=== PATIENT | female | born 1960 | race Caucasian/White ===

== ENCOUNTER → 2018-03-10 16:10 | Outpatient (CLI) | payer OTHER, SELFPAY ==
[2018-03-10 18:10] LABS: TSH w/ Reflex to FT4 3.07 uIU/mL (0.47-4.68)
== END ==
PROVIDERS: PCP Family Medicine; Visit Provider Family Medicine
DX: E03.9 Hypothyroidism, unspecified (principal)
CPT/HCPCS: 84443

== ENCOUNTER → 2018-04-19 09:20 | Outpatient (CLI) | payer OTHER, SELFPAY ==
[2018-04-19 11:36] LABS: Free T3, Triiodothyronine Free 3.37 pg/mL (2.77-5.27); Free T4, Direct Thyroxine 1.79 ng/dL (0.78-2.19)
== END ==
PROVIDERS: PCP Family Medicine; Visit Provider Family Medicine
DX: E03.9 Hypothyroidism, unspecified (principal)
CPT/HCPCS: 36415; 84439; 84443; 84481

== ENCOUNTER → 2018-12-13 16:09 | Outpatient (CLI) | payer OTHER, SELFPAY ==
--- NOTE | 2018-12-13 16:10 | DI.MG.S_ITS ---
BILATERAL DIGITAL SCREENING MAMMOGRAM 3D/2D WITH CAD: 12/13/2018 CLINICAL: Routine screening. Comparison is made to exams dated: 12/05/2014 mammogram, 03/30/2011 mammogram, and 11/27/2009 mammogram - [facility]. There are scattered fibroglandular elements in both breasts. Current study was also evaluated with a Computer Aided Detection (CAD) system. No significant masses, calcifications, or other findings are seen in either breast. There has been no significant interval change. IMPRESSION: NEGATIVE There is no mammographic evidence of malignancy. A 1 year screening mammogram is recommended. This exam was interpreted at Station ID: [id number]. NOTE: For mammograms, a report in lay terms will be sent to the patient. Approximately 15% of breast malignancies will not be visualized mammographically. In the management of a palpable breast mass, a negative mammogram must not discourage biopsy of a clinically suspicious lesion. Electronically Signed By: Saba pollard/bill:12/13/2018 16:54:24 letter sent: Normal Exam ACR BI-RADS Category 1: Negative 3341F
== END ==
PROVIDERS: PCP Family Medicine; Visit Provider Family Medicine
DX: Z12.31 Encounter for screening mammogram for malignant neoplasm of breast (principal)
CPT/HCPCS: 77063; 77067

== ENCOUNTER → 2018-12-29 09:07 | Outpatient (CLI) | payer OTHER, SELFPAY ==
[2018-12-29 10:27] LABS: Free T3, Triiodothyronine Free 3.76 pg/mL (2.77-5.27); Free T4, Direct Thyroxine 1.74 ng/dL (0.78-2.19)
== END ==
PROVIDERS: PCP Family Medicine; Visit Provider Family Medicine
DX: E03.9 Hypothyroidism, unspecified (principal)
CPT/HCPCS: 36415; 84439; 84443; 84481

== ENCOUNTER → 2019-01-18 14:06 | Outpatient (CLI) | payer OTHER, SELFPAY | PROVIDERS: PCP Family Medicine; Visit Provider Family Medicine | DX: B99.9 Unspecified infectious disease (principal) | CPT/HCPCS: 87070; 87075; 87077; 87147; 87186; 87205 ==

== ENCOUNTER 2019-03-23 07:43 | Day surgery (SDC) | payer OTHER, SELFPAY ==
--- NOTE | 2019-03-23 | PATH_ITS ---
[facility] Accession Number: [id number] . 01 Material submitted: . body - POLYP AT 50 . 02 Diagnosis: Colon at 50 cm, Polyp: Tubular adenoma. MRV/03/26/2019 . 02 Electronically signed: . Tho Lundberg MD, PhD, Pathologist NPI- [id number] . 01 Gross description: . POLYP AT 50: Received in formalin is 1 fragment(s) of garibay, soft tissue measuring 0.6 x 0.5 x 0.5 cm which is bisected and submitted entirely in 1 cassette(s) /DMC /DMC . 02 Pathologist provided ICD-10: D12.6 . 02 CPT . 757553 Performed at: 01 [facility] [address] [id number] MD Tanner Torrez MD Phone: [phone] Performed at: 02 [facility] [address] [place], [place] [id number] MD Elidia Yarbrough MD Phone: [phone]
[2019-03-23] MEDS: SODIUM CHLORIDE 0.9% 1,000 ML 200 ML IV (08:08)
[2019-03-23 08:10] VITALS: BP 176/100; PULSE 102; RESP 15; TEMP 36.6; O2SAT 95; BMI 36.3
--- NOTE | 2019-03-23 08:57 | PM.HP.1 ---
History of Present Illness Date Patient Seen: 03/23/19 Time Patient Seen: 08:57 Chief complaint: [id number] Narrative: The patient is a woman here for her 1st colonoscopy. This is a screening exam. Her mother did however have colon cancer. Patient History Medical History History of UTI (Acute) Urinary incontinence (Acute) Chronic back pain (Chronic) Degenerative joint disease (DJD) of lumbar spine (Chronic ~2014) History of urinary incontinence (Chronic ~1999) Hypothyroidism (Chronic ~2008) Chicken pox (Resolved) Measles (Resolved) Mumps (Resolved) Surgical History Anesthesia (Resolved) Status post bilateral salpingo-oophorectomy (BSO) Status post hysterectomy (~1999) Family History Father Age: 83 Pacemaker Heart disease Grandfather Cancer Grandmother Stroke Grandfather Age: 77 Heart disease Grandmother Age: 84 Stroke Sister Age: 58 Hypertension Mother Cancer Social History marital status: household members: spouse education level: college occupational status: employed (teacher) Smoking Status: Never smoker substance use type: does not use Family & Social History Family History Father Age: 83 Pacemaker Heart disease Grandfather Cancer Grandmother Stroke Grandfather Age: 77 Heart disease Grandmother Age: 84 Stroke Sister Age: 58 Hypertension Mother Cancer Social History: household members spouse Tobacco & Substance use: Smoking Status Never smoker Meds Home Medications Medication Instructions Recorded Confirmed Type Vitamin B-12 5,000 mcg SUBLINGUAL DAILY #0 01/07/17 03/23/19 History estradiol 1 mg PO QDAY #90 tab 10/12/18 03/23/19 Rx levothyroxine 150 mcg tablet 150 mcg PO DAILY #30 tab 03/09/19 03/23/19 Rx Allergies Allergy/AdvReac Type Severity Reaction Status Date / Time codeine [CODEINE] Allergy Unknown projectile Verified 03/23/19 07:58 vomit Review of Systems Review of Systems All systems reviewed & are unremarkable except as noted in HPI and below Exam Vital Signs (past 8 hours): - 07/26/19 08:10 Temperature 97.8 F Pulse Rate 102 H Respiratory Rate 15 Blood Pressure 176/100 H Pulse Oximetry 95 Oxygen Delivery Method Room Air Narrative Exam Narrative: Pleasant cooperative patient no apparent distress. Lungs are clear to auscultation. No rales or rhonchi. Heart regular rate and rhythm no murmur gallop. Abdomen is soft nontender without mass. No obvious hernias. Patient is alert and oriented x3. Assessment & Plan Assessment & Plan narrative: The patient for a screening colonoscopy. I have discussed the procedure with them. Risks of bleeding, perforation which would necessitate major operation, failure to find remove all lesions, the potential tattoo were all discussed. All questions were answered. They wished to proceed.
--- NOTE | 2019-03-23 08:59 | PM.PREOP ---
Pre-operative Note Interval Note History & Physical reviewed/Exam performed by Physician: Yes Changes to H&P: No ASA Class (for procedural sedation): I
[2019-03-23] MEDS: ONDANSETRON 4 MG/2 ML INJ IV (09:10)
[2019-03-23] MEDS: SCOPOLAMINE 1 PATCH TOP (09:13)
[2019-03-23] MEDS: fentaNYL 250 MCG/5 ML INJ IV (09:25)
[2019-03-23] MEDS: MIDAZOLAM 5 MG/5 ML VIAL IV (09:27)
--- NOTE | 2019-03-23 09:28 | SUR.OPER ---
GLASSES IN LABELED CONTAINER TO PACU WITH PATIENT
[2019-03-23 09:54] VITALS: BP 138/87; PULSE 84; RESP 15; TEMP 36.1; O2SAT 96
--- NOTE | 2019-03-23 09:54 | PM.OP.ENDO ---
Operative Date/Time/Diagnoses Date of procedure: 03/23/19 Time of procedure: 09:55 Pre-op diagnosis: Screening examination. Family history of colon cancer(mother) Post-op diagnosis: same (One moderate size polyp. Snared and removed. Sigmoid diverticulosis.) Procedure & Clinicians Study performed: Colonoscopy with hot snare polypectomy Same procedure as scheduled: Yes Indications: Screening Surgeon: Von Palacios Procedure Notes SCOAP/Timeout: Performed Procedure in detail: The patient was placed in the left lateral decubitus position and underwent IV sedation directed by the surgeon consisting of fentanyl and Versed. Visibly patient had some swollen external hemorrhoids. Digital exam was unremarkable. The scope was inserted and advanced through the rectum into the sigmoid, descending, transverse, and ascending colon. A polyp was noted in the colon on the way in that I decided to remove on the way out. Pressure was applied and a stiffener inserted in order to reach the cecum. The cecum was reached identified by the ileocecal valve and the appendiceal opening. The scope was gradually brought out. The Polyp seen on the way in was found at [address] out[address] It was snared with a hot snare incompletely removed.. The scope ultimately was retroflexed in the rectum. The appearance was remarkable for scarring. There were no polyps.. The scope was removed and the patient tolerated the procedure well Scope withdrawal time: 9min(excludes snare time) Sedation minutes: 36 Findings: diverticulosis (Sigmoid), polyp and other findings (External hemorrhoids) Recommendations: Colonscopy in 5 years Follow up: as needed Disposition: PACU
[2019-03-23 09:59] VITALS: BP 137/83; PULSE 80; RESP 15; O2SAT 94
[2019-03-23 10:04] VITALS: BP 137/86; PULSE 85; RESP 20; TEMP 36.8; O2SAT 98
[2019-03-23 10:10] VITALS: BP 132/80; PULSE 75; RESP 15; TEMP 36.6; O2SAT 100
== END 2019-03-23 10:19 | disposition home or self-care (01) ==
PROVIDERS: PCP Family Medicine; Visit Provider Specialist
PROC: 0DJD8ZZ Inspection of Lower Intestinal Tract, Via Natural or Artificial Opening Endoscopic (ICD-10-PCS; CPT 45378; principal; 2019-03-23 08:45)
DX: Z12.11 Encounter for screening for malignant neoplasm of colon (principal); Z80.0 Family history of malignant neoplasm of digestive organs; K57.30 Diverticulosis of large intestine without perforation or abscess without bleeding; D12.6 Benign neoplasm of colon, unspecified; K64.4 Residual hemorrhoidal skin tags
CPT/HCPCS: 45385; 99152; 99153; J2250; J2405; J3010

== ENCOUNTER → 2020-01-30 15:17 | Outpatient (CLI) | payer OTHER, SELFPAY ==
[2020-01-30 19:04] LABS: Thyroid Stimulating Hormone 0.56 uIU/mL (0.47-4.68)
== END ==
PROVIDERS: PCP Family Medicine; Referring Provider Family Medicine; Visit Provider Family Medicine
DX: E03.9 Hypothyroidism, unspecified (principal)
CPT/HCPCS: 36415; 84443

== ENCOUNTER → 2021-12-02 08:36 | Outpatient (CLI) | payer OTHER, SELFPAY ==
[2021-12-02 09:54] LABS: Alanine Aminotransferase 23 IU/L (<35); Albumin Globulin Ratio 1.5 (1.0-2.8); Alkaline Phosphatase 58 U/L (38-126); Aspartate Aminotransferase 24 IU/L (14-36); BUN Creatinine Ratio 21.9 (6-22); Bilirubin Total 0.7 mg/dL (0.2-1.3); Blood Urea Nitrogen 16 mg/dL (7-17); Calcium 8.8 mg/dL (8.4-10.2); Carbon Dioxide 26 mmol/L (22-32); Chloride 106 mmol/L (98-107); Cholesterol 236 mg/dL (140-199); Estimated Glomerular Filt Rate > 60.0 mL/min (>60); Globulin 2.7 g/dL (1.7-4.1); Glucose 95 mg/dL (70-100); HDL Cholesterol 67 mg/dL (40-60); HEMOLYSIS < 15 (0-50); LDL Cholesterol Calculated 144 mg/dL (<100); Potassium 4.4 mmol/L (3.4-5.1); Sodium 139 mmol/L (137-145); Total Protein 6.7 g/dL (6.3-8.2); Triglycerides 123 mg/dL (35-150)
--- NOTE | 2021-12-02 11:51 | DI.MG.S_ITS ---
BILATERAL DIGITAL SCREENING MAMMOGRAM 3D/2D WITH CAD: 12/02/2021 CLINICAL: Routine screening. Comparison is made to exams dated: 12/13/2018 mammogram - [facility], 12/05/2014 mammogram, and 03/30/2011 mammogram - [facility]. There are scattered fibroglandular elements in both breasts. Current study was also evaluated with a Computer Aided Detection (CAD) system. No significant masses, calcifications, or other findings are seen in either breast. There has been no significant interval change. IMPRESSION: NEGATIVE There is no mammographic evidence of malignancy. A 1 year screening mammogram is recommended. This exam was interpreted at Station ID: [id number]. NOTE: For mammograms, a report in lay terms will be sent to the patient. Approximately 15% of breast malignancies will not be visualized mammographically. In the management of a palpable breast mass, a negative mammogram must not discourage biopsy of a clinically suspicious lesion. Electronically Signed By: Pablo Alarcon M.D., jr/bill:12/02/2021 12:26:08 letter sent: Normal Exam ACR BI-RADS Category 1: Negative 3341F
[2021-12-02 11:56] LABS: Free T4, Direct Thyroxine 1.88 ng/dL (0.78-2.19)
== END ==
PROVIDERS: PCP Family Medicine; Referring Provider Family Medicine; Visit Provider Family Medicine
DX: E03.9 Hypothyroidism, unspecified (principal); E66.9 Obesity, unspecified; Z13.220 Encounter for screening for lipoid disorders; Z12.31 Encounter for screening mammogram for malignant neoplasm of breast
CPT/HCPCS: 36415; 77063; 77067; 80053; 80061; 84439; 84443

== ENCOUNTER → 2022-09-16 07:05 | Outpatient (CLI) | payer OTHER, SELFPAY ==
[2022-09-16 09:15] LABS: TSH w/ Reflex to FT4 0.23 uIU/mL (0.47-4.68)
== END ==
PROVIDERS: PCP Family Medicine; Referring Provider Family Medicine; Visit Provider Family Medicine
DX: E03.9 Hypothyroidism, unspecified (principal); R53.83 Other fatigue; Z79.899 Other long term (current) drug therapy
CPT/HCPCS: 36415; 84439; 84443

== ENCOUNTER → 2022-11-19 07:31 | Outpatient (CLI) | payer OTHER, SELFPAY ==
[2022-11-19 10:35] LABS: Thyroid Stimulating Hormone 1.63 uIU/mL (0.47-4.68)
[2022-11-19 15:31] LABS: Free T4, Direct Thyroxine 1.32 ng/dL (0.78-2.19)
== END ==
PROVIDERS: PCP Family Medicine; Referring Provider Family Medicine; Visit Provider Family Medicine
DX: E03.9 Hypothyroidism, unspecified (principal)
CPT/HCPCS: 36415; 84439; 84443; 84481

== ENCOUNTER → 2022-11-28 10:13 | Outpatient (CLI) | payer OTHER, SELFPAY | PROVIDERS: PCP Family Medicine; Visit Provider Physician Assistant | DX: R30.0 Dysuria (principal) | CPT/HCPCS: 87086 ==

== ENCOUNTER → 2022-12-13 07:29 | Outpatient (CLI) | payer OTHER, SELFPAY ==
--- NOTE | 2022-12-13 07:37 | DI.RAD.S_ITS ---
PROCEDURE: XR CHEST 2V INDICATIONS: Shortness of breath TECHNIQUE: 2 views of the chest were acquired. COMPARISON: None. FINDINGS: Surgical changes and devices: None. Lungs and pleura: Lungs are clear. No pleural effusions or pneumothorax. Mediastinum: Mediastinal contours are normal. Heart size is normal. Bones and chest wall: No suspicious bony abnormalities. Soft tissues appear unremarkable. IMPRESSION: No evidence acute pulmonary process. Dictated by: Glen Longoria M.D. on 12/13/2022 at 8:07 Approved by: Glen Longoria M.D. on 12/13/2022 at 8:09
[2022-12-13 08:13] LABS: Influenza A - CEPHEID Flu A NEGATIVE (NEGATIVE); Influenza B - CEPHEID Flu B NEGATIVE (NEGATIVE); Respiratory Syncytial Virus Negative (Negative)
[2022-12-13 09:33] LABS: COVID-19 CEPHEID 4-PLEX PCR Negative (Negative)
== END ==
PROVIDERS: PCP Family Medicine; Referring Provider Urology; Visit Provider Physician Assistant
DX: J06.9 Acute upper respiratory infection, unspecified (principal); R06.00 Dyspnea, unspecified
CPT/HCPCS: 0241U; 71046

== ENCOUNTER → 2022-12-22 12:23 | Outpatient (CLI) | payer OTHER, SELFPAY | PROVIDERS: PCP Family Medicine; Visit Provider Student in an Organized Health Care Education/Training Program | DX: N39.0 Urinary tract infection, site not specified (principal) | CPT/HCPCS: 87077; 87086; 87186 ==

== ENCOUNTER → 2023-02-11 07:21 | Outpatient (CLI) | payer OTHER, SELFPAY ==
[2023-02-11 08:56] LABS: Add Manual Diff / Slide Review NO; Basophils Absolute Auto 0 /uL (0-100); Basophils Percent Auto 0.2 % (0-2); Eosinophils Absolute Auto 200 /uL (0-450); Eosinophils Percent Auto 3.3 % (2-4); Hematocrit 41.6 % (36-46); Hemoglobin 14.3 g/dL (12.0-16.0); Lymphocytes Absolute Auto 2500 /uL (1100-4500); Lymphocytes Percent Auto 38.3 % (25-40); Mean Corpuscular HGB Conc 34.3 % (30-36); Mean Corpuscular Hemoglobin 29.3 PG (26-34); Mean Corpuscular Volume 85.5 fL (80-100); Monocytes Absolute Auto 400 /uL (0-900); Monocytes Percent Auto 6.4 % (3-14); Neutrophils Absolute Auto 3400 /uL (1500-7000); Neutrophils Percent Auto 51.8 % (50-75); Platelet Count 299 X10^3/uL (150-400); Red Blood Cell Count 4.87 X10^6/uL (4.0-5.2); Red Cell Distribution Width 13.2 % (11.6-14.8); White Blood Cell Count 6.5 X10^3/uL (4.5-11.0)
[2023-02-11 09:26] LABS: HEMOLYSIS < 15 (0-50); Iron 116 ug/dL (37-170)
[2023-02-11 09:30] LABS: Blood Urea Nitrogen 15 mg/dL (7-17); Calcium 9.2 mg/dL (8.4-10.2); Carbon Dioxide 30 mmol/L (22-32); Chloride 101 mmol/L (98-107); Estimated Glomerular Filt Rate > 60 mL/min (>60); Glucose 92 mg/dL (80-110); HEMOLYSIS < 15 (0-50); Sodium 137 mmol/L (137-145)
[2023-02-11 09:40] LABS: Percent Iron Saturation 31 % (15-50); Total Iron Binding Capacity 377 ug/dL (265-497); Transferrin 291 mg/dL (206-381)
[2023-02-11 10:23] LABS: Vitamin B12 > 1000 pg/mL (239-931)
== END ==
PROVIDERS: PCP Family Medicine; Referring Provider Physician Assistant; Visit Provider Physician Assistant
DX: E03.9 Hypothyroidism, unspecified (principal); R53.83 Other fatigue
CPT/HCPCS: 36415; 80048; 82607; 83540; 83550; 84443; 85025

== ENCOUNTER → 2023-11-30 08:30 | Outpatient (CLI) | payer OTHER, SELFPAY ==
--- NOTE | 2023-11-30 08:31 | DI.RAD.S_ITS ---
PROCEDURE: XR FOOT RT MIN 3V INDICATIONS: dorsal foot pain, tender prox 2-4 metatar TECHNIQUE: 3 views of the foot were acquired. COMPARISON: [facility], , FOOT 3V LEFT, 12/07/2016, 17:11. FINDINGS: Bones: No fractures or dislocations. Mild hallux valgus angulation of the 1st MTP joint with medial bunion formation. Mild 1st MTP joint degeneration. Plantar and posterior calcaneal enthesophytes. No suspicious bony lesions. Soft tissues: No tibiotalar joint effusion. Achilles tendon appears normal. IMPRESSION: No acute bony abnormality. Dictated by: Marlo Pfeiffer M.D. on 11/30/2023 at 8:49 Approved by: Marlo Pfeiffer M.D. on 11/30/2023 at 8:49
== END ==
PROVIDERS: PCP Family Medicine; Referring Provider Student in an Organized Health Care Education/Training Program; Visit Provider Student in an Organized Health Care Education/Training Program
DX: M20.11 Hallux valgus (acquired), right foot (principal); M21.611 Bunion of right foot; M79.671 Pain in right foot
CPT/HCPCS: 73630

== ENCOUNTER → 2023-11-30 09:03 | Outpatient (CLI) | payer OTHER, SELFPAY ==
--- NOTE | 2023-11-30 09:04 | DI.MG.S_ITS ---
BILATERAL DIGITAL SCREENING MAMMOGRAM 3D/2D WITH CAD: 11/30/2023 CLINICAL: Routine screening. Comparison is made to exams dated: 12/02/2021 mammogram, 12/13/2018 mammogram - [facility], and 12/05/2014 mammogram - [facility]. Both breasts are heterogeneously dense, which may obscure small masses (category c / 51-75% glandular tissue). Current study was also evaluated with a Computer Aided Detection (CAD) system. There is an oval asymmetry with a circumscribed margin in the left breast at 1 o'clock middle depth. No other significant masses, calcifications, or other findings are seen in either breast. IMPRESSION: INCOMPLETE: NEEDS ADDITIONAL IMAGING EVALUATION The oval asymmetry in the left breast most likely is a skin lesion and is indeterminate. Additional views with possible ultrasound are recommended. Based on the Tyrer Cuzick model (a risk assessment model) the patient's lifetime risk is 10.1% and her 10 year risk is 4.2%. According to the ACR, ACS, and NCCN guidelines, an annual breast MRI exam along with mammogram is recommended if the patient's lifetime risk is 20% or greater. This exam was interpreted at Station ID: [id number]. NOTE: For mammograms, a report in lay terms will be sent to the patient. Approximately 15% of breast malignancies will not be visualized mammographically. In the management of a palpable breast mass, a negative mammogram must not discourage biopsy of a clinically suspicious lesion. Electronically Signed By: Livia blackman/bill:11/30/2023 14:14:52 letter sent: Additional Imaging Needed ACR BI-RADS Category 0: Incomplete 3340F
== END ==
PROVIDERS: PCP Family Medicine; Referring Provider Family Medicine; Visit Provider Family Medicine
DX: Z12.31 Encounter for screening mammogram for malignant neoplasm of breast (principal); R92.333 Mammographic heterogeneous density, bilateral breasts
CPT/HCPCS: 77063; 77067

== ENCOUNTER → 2023-12-28 13:29 | Outpatient (CLI) | payer OTHER, SELFPAY ==
--- NOTE | 2023-12-28 13:30 | DI.MG.S_ITS ---
UNILATERAL LEFT DIGITAL DIAGNOSTIC MAMMOGRAM 3D/2D WITH ADDITIONAL VIEWS: 12/28/2023 CLINICAL: Additional evaluation requested from prior study. Comparison is made to exams dated: 11/30/2023 mammogram, 12/02/2021 mammogram, and 12/13/2018 mammogram - [facility]. The left breast is heterogeneously dense, which may obscure small masses (category c / 51-75% glandular tissue). There is an oval focal asymmetry with a circumscribed margin in the left breast at 2 o'clock middle depth. This is seen in additional views. No other significant masses or calcifications are seen in the breast. IMPRESSION: INCOMPLETE: NEEDS ADDITIONAL IMAGING EVALUATION The oval focal asymmetry in the left breast most likely is a cyst and is indeterminate. A targeted ultrasound of the left breast is recommended and will be performed immediately following this exam. Based on the Tyrer Cuzick model (a risk assessment model) the patient's lifetime risk is 10.1% and her 10 year risk is 4.2%. According to the ACR, ACS, and NCCN guidelines, an annual breast MRI exam along with mammogram is recommended if the patient's lifetime risk is 20% or greater. This exam was interpreted at Station ID: [id number]. NOTE: For mammograms, a report in lay terms will be sent to the patient. Approximately 15% of breast malignancies will not be visualized mammographically. In the management of a palpable breast mass, a negative mammogram must not discourage biopsy of a clinically suspicious lesion. Electronically Signed By: Saba Chan M.D. lk/:12/28/2023 14:00:09 ACR BI-RADS Category 0: Incomplete 3340F
--- NOTE | 2023-12-28 13:30 | DI.US.S_ITS ---
LIMITED ULTRASOUND OF LEFT BREAST AND AXILLA: 12/28/2023 CLINICAL: Follow up from addtional views. Intermittent pain in left breast. Comparison is made to exams dated: 12/28/2023 mammogram, 11/30/2023 mammogram, 12/02/2021 mammogram, 12/13/2018 mammogram - [facility], and 12/05/2014 mammogram - [facility]. Color flow ultrasound of the left breast axilla was performed on the areas of interest. Hansen scale images of the real-time examination were reviewed. There is a 1 cm oval simple cyst in the left breast at 2 o'clock posterior depth. This correlates with mammography findings. IMPRESSION: BENIGN There is no sonographic evidence of malignancy. The 1 cm oval simple cyst in the left breast is benign. Return to annual mammogram screening schedule is recommended. This exam was interpreted at Station ID: [id number]. Electronically Signed By: Saba pollard/:12/28/2023 14:24:41 letter sent: Normal Exam Ultrasound BI-RADS: 2 Benign
== END ==
PROVIDERS: PCP Family Medicine; Referring Provider Family Medicine; Visit Provider Family Medicine
DX: R92.8 Other abnormal and inconclusive findings on diagnostic imaging of breast (principal); N60.02 Solitary cyst of left breast; R92.332 Mammographic heterogeneous density, left breast
CPT/HCPCS: 76642; 77065; G0279

== ENCOUNTER → 2024-06-13 11:07 | Outpatient (CLI) | payer OTHER, SELFPAY ==
[2024-06-13 11:51] LABS: Add Manual Diff / Slide Review NO; Basophils Absolute Auto 100 /uL (0-100); Basophils Percent Auto 1.2 % (0-2); Eosinophils Absolute Auto 200 /uL (0-450); Eosinophils Percent Auto 3.5 % (2-4); Hematocrit 41.8 % (36-46); Hemoglobin 14.5 g/dL (12.0-16.0); Lymphocytes Absolute Auto 2000 /uL (1100-4500); Lymphocytes Percent Auto 33.6 % (25-40); Mean Corpuscular HGB Conc 34.7 % (30-36); Mean Corpuscular Hemoglobin 29.7 PG (26-34); Mean Corpuscular Volume 85.8 fL (80-100); Monocytes Absolute Auto 300 /uL (0-900); Monocytes Percent Auto 4.9 % (3-14); Neutrophils Absolute Auto 3400 /uL (1500-7000); Neutrophils Percent Auto 56.8 % (50-75); Platelet Count 321 X10^3/uL (150-400); Red Blood Cell Count 4.88 X10^6/uL (4.0-5.2); Red Cell Distribution Width 13.2 % (11.6-14.8); White Blood Cell Count 5.9 X10^3/uL (4.5-11.0)
[2024-06-13 12:26] LABS: Hemoglobin A1C% w Est Avg Glu 5.3 % (4.0-6.0)
[2024-06-13 12:28] LABS: Alanine Aminotransferase 16 IU/L (<35); Albumin Globulin Ratio 1.6 (1.0-2.8); Alkaline Phosphatase 79 U/L (38-126); Aspartate Aminotransferase 19 IU/L (14-36); BUN Creatinine Ratio 13.5 (6-22); Bilirubin Total 0.6 mg/dL (0.2-1.3); Blood Urea Nitrogen 10 mg/dL (7-17); Carbon Dioxide 26 mmol/L (22-32); Chloride 105 mmol/L (98-107); Cholesterol 243 mg/dL (140-199); Estimated Glomerular Filt Rate > 60 mL/min (>60); Globulin 2.5 g/dL (1.7-4.1); Glucose 102 mg/dL (80-110); HDL Cholesterol 56 mg/dL (40-60); HEMOLYSIS < 15 (0-50); LDL Cholesterol Calculated 160 mg/dL (<100); Potassium 4.4 mmol/L (3.4-5.1); Sodium 137 mmol/L (137-145); Total Protein 6.5 g/dL (6.3-8.2); Triglycerides 136 mg/dL (35-150)
[2024-06-13 12:57] LABS: TSH w/ Reflex to FT4 0.72 uIU/mL (0.47-4.68)
== END ==
LOC: LAB 11:08
PROVIDERS: PCP Family Medicine; Referring Provider Family Medicine; Visit Provider Family Medicine
DX: Z00.00 Encounter for general adult medical examination without abnormal findings (principal); E03.9 Hypothyroidism, unspecified; E66.9 Obesity, unspecified; Z13.220 Encounter for screening for lipoid disorders; Z13.1 Encounter for screening for diabetes mellitus
CPT/HCPCS: 36415; 80053; 80061; 83036; 84443; 85025

== ENCOUNTER → 2024-08-30 07:20 | Outpatient (CLI) | payer OTHER, SELFPAY | PROVIDERS: PCP Family Medicine; Referring Provider Nurse Practitioner Family; Visit Provider Nurse Practitioner Family | DX: J02.9 Acute pharyngitis, unspecified (principal) | CPT/HCPCS: 87070 ==

== ENCOUNTER 2024-08-30 18:58 | Emergency (ER) | payer OTHER, SELFPAY ==
[2024-08-30 19:07] VITALS: BP 210/101; PULSE 110; RESP 17; TEMP 38.1; O2SAT 98; BMI 35.2
[2024-08-30] MEDS: ONDANSETRON 4 MG ODT SL (19:54)
[2024-08-30] MEDS: ACETAMINOPHEN 325 MG TABLET 975 MG PO (19:54)
--- NOTE | 2024-08-30 20:07 | ED_ITS ---
HPI - Ear Problem General Chief complaint: Ear Stated complaint: sent by [facility], rt ear px, face and neck swelling Time Seen by Provider: 08/30/24 20:06 Source: patient Mode of arrival: Ambulatory History of Present Illness HPI Narrative: 64-year-old female with ongoing ear pain problems, followed by market research executive who suggested oral antihistamines which are being taken, also taking meloxicam for tendinitis on a regular basis, no trauma or injury, complains of right-sided ear pain worse today, with scant drainage, no instrumentation. No neck pain, headache, photophobia. No weakness to face arm or leg. Currently not taking any antibiotics, no recent antibiotics recent months. Related Data Home Medications Medication Instructions Recorded Confirmed meloxicam 7.5 mg tablet 7.5 mg PO DAILY 08/30/24 08/30/24 Previous Rx's Medication Instructions Recorded estradiol 1 mg tablet See Rx Instructions .Route 06/05/24 .COMPLEX #90 tabs levothyroxine 137 mcg tablet 137 mcg PO DAILY #90 tabs 06/21/24 peg 3350-electrolytes 236 240 ml PO Q10M #4,000 mL 07/24/24 gram-22.74 gram-6.74 gram-5.86 gram solution (Golytely) amoxicillin 875 mg tablet 875 mg PO BID dental infection 10 08/30/24 days #20 tabs Allergies Allergy/AdvReac Type Severity Reaction Status Date / Time codeine [CODEINE] Allergy Unknown projectile Verified 08/30/24 19:14 vomit Patient History Medical History Chicken pox Chronic back pain Degenerative joint disease (DJD) of lumbar spine (~2014) History of urinary incontinence (~1999) History of UTI Hypothyroidism (~2008) Measles Mumps Urinary incontinence Surgical History Anesthesia Status post bilateral salpingo-oophorectomy (BSO) Status post hysterectomy (~1999) Family History Father Age: 88 Pacemaker Heart disease Grandfather Cancer Grandmother Stroke Grandfather Age: 82 Heart disease Grandmother Age: 89 Stroke Sister Age: 63 Hypertension Mother Cancer Social History marital status: household members: spouse education level: college occupational status: employed (teacher) Smoking Status: Never smoker substance use type: does not use Smoking Status: Never smoker Exam Narrative Exam Narrative: GENERAL: Well-developed patient, in mild distress. HEAD: Atraumatic. Normocephalic. EYES: Pupils equal round and reactive. Extraocular motions intact. No scleral icterus. No injection or drainage. ENT: Nose without bleeding, purulent drainage. Throat without erythema, tonsillar hypertrophy or exudate. Airway patent. Left TM with clear fluid behind, normal landmarks, normal left EAC. Right TM with bulge inferiorly, dullness inferiorly, no obvious fluid in the external auditory canal, no foreign bodies obvious. No mastoid area tenderness. No specific tenderness TMJ right or left side. Able to open jaw well. Control secretions well, normal phonation NECK: Trachea midline. Non tender CARDIOVASCULAR: Regular rate and rhythm without murmurs, gallops, or rubs. RESPIRATORY: Clear to auscultation. Breath sounds equal bilaterally. No wheezes, rales, or rhonchi. GASTROINTESTINAL: Abdomen soft, non-tender, nondistended. EXTREMITIES: No edema or joint tenderness. BACK: Nontender without deformity or crepitance. No flank tenderness. NEURO: AOx3. Motor functions grossly nonfocal SKIN: No rash or erythema of visible areas Initial Vital Signs Initial Vital Signs: Vital Signs Temperature 100.5 F H 08/30/24 19:07 Pulse Rate 110 H 08/30/24 19:07 Respiratory Rate 17 08/30/24 19:07 Blood Pressure 210/101 H 08/30/24 19:07 Pulse Oximetry 98 08/30/24 19:07 Oxygen Delivery Method Room Air 08/30/24 19:07 Course Orders Ordered: Discontinued Medications Acetaminophen (Acetaminophen 325 Mg Tablet) 975 mg PO NOW ONE Stop: 08/30/24 19:50 Last Admin: 08/30/24 19:54 Dose: 975 mg Documented By: LILIAN Amoxicillin (Amoxicillin 250 Mg Capsule) 1,000 mg PO NOW ONE Stop: 08/30/24 20:24 Last Admin: 08/30/24 20:28 Dose: 1,000 mg Documented By: LILIAN Ondansetron HCl (Ondansetron 4 Mg Odt) 4 mg SL NOW ONE Stop: 08/30/24 19:50 Last Admin: 08/30/24 19:54 Dose: 4 mg Documented By: LILIAN Oxycodone HCl (Oxycodone Ir 5 Mg Tablet) 5 mg PO NOW ONE Stop: 08/30/24 20:23 Last Admin: 08/30/24 20:27 Dose: 5 mg Documented By: LILIAN Oxycodone/Acetaminophen (Oxycodone/Apap 5/325 Prepack) 1 bottle MISC DIRECTED ONE Stop: 08/30/24 20:24 Last Admin: 08/30/24 20:27 Dose: 1 bottle Documented By: LILIAN Vital Signs Vital signs: Vital Signs - 8 hr 08/30/24 20:43 Temperature 99.4 F Pulse Rate 101 H Respiratory Rate 18 Blood Pressure 196/82 H Pulse Oximetry 94 Medical Decision Making MDM Narrative Medical decision making narrative: Ongoing ear problems, now right-sided ear pain today without known trauma, low- grade fever noted on triage. Left TM unremarkable. Right TM with inferior bulge and loss of landmarks, EAC without obvious foreign body or purulent material or narrowing. We will treat for acute suppurative right-sided otitis media for now. No recent antibiotics. Oral dose of amoxicillin, first dose given now, prescription sent to her pharmacy.. Patient given Tylenol after triage. Quite uncomfortable appearing. We will give oral dose oxycodone, home pack oxycodone/APAP. Discharged home with family. Recheck advised with Otolaryngology if not improving by Tuesday. Return precautions discussed. Home with . Discharge Plan Departure Patient Disposition: Home Clinical Impression: Acute right otitis media Activity Restrictions/Additional Instructions: Right-sided ear pain with reported drainage. On examination the inferior aspect of the eardrum has some dullness and loss of landmarks, no obvious foreign bodies seen in the external auditory canal, no obvious purulent fluid or narrowing at this time. Ongoing ear problems, no recent antibiotics, unresponsive to chronic medication meloxicam anti-inflammatory medication being taken for tendinitis, unresponsive to oral antihistamine being taken in case that is cause of ongoing ear problems. Trial of antibiotics, 1st dose amoxicillin given in the emergency department, further dosing for 10 day course sent to your pharmacy. Consider recheck with Otolaryngology if not improving Tuesday. Return to this/nearest emergency department for any change worsening symptoms or any concerns prior. Continue taking your antihistamine and your anti-inflammatory medications. Home pack oxycodone/APAP to use for additional pain control if needed. Clinic contact information provided for local solar energy specialist in the [place] region, if needed. You might require referral from your primary care provider. Prescriptions: New amoxicillin 875 mg tablet 875 mg PO BID 10 Days Qty: 20 0RF No Action meloxicam 7.5 mg tablet 7.5 mg PO DAILY estradiol 1 mg tablet See Rx Instructions .ROUTE .COMPLEX Qty: 90 3RF Dose Instruction: take 1 tablet by mouth once daily Rx Instructions: take 1 tablet by mouth once daily levothyroxine 137 mcg tablet 137 mcg PO DAILY Qty: 90 3RF peg 3350-electrolytes [Golytely] 236-22.74-6.74 -5.86 gram recon soln 240 ml PO Q10M Qty: 4000 0RF Rx Instructions: take as directed by Physician Referrals: Mikal Simpson MD [Physician] - Priyanka Hill DO [Primary Care Provider] - Stand Alone Forms: Patient Portal/API/Survey
[2024-08-30] MEDS: OXYCODONE/APAP 5/325 PREPACK 1 BOTTLE MISC (20:27)
[2024-08-30] MEDS: OXYCODONE IR 5 MG TABLET PO (20:27)
[2024-08-30] MEDS: AMOXICILLIN 250 MG CAPSULE 1000 MG PO (20:28)
[2024-08-30 20:43] VITALS: BP 196/82; PULSE 101; RESP 18; TEMP 37.4; O2SAT 94
== END 2024-08-30 20:43 | disposition home or self-care (01) ==
PROVIDERS: Emergency Provider Emergency Medicine; PCP Family Medicine
DX: H66.91 Otitis media, unspecified, right ear (principal)
CPT/HCPCS: 87070; 99283

== ENCOUNTER → 2024-11-04 09:47 | Outpatient (CLI) | payer OTHER, SELFPAY | PROVIDERS: PCP Family Medicine; Visit Provider Nurse Practitioner Family | DX: R30.0 Dysuria (principal) | CPT/HCPCS: 87077; 87086; 87186 ==

== ENCOUNTER → 2024-11-23 07:16 | Outpatient (CLI) | payer OTHER, SELFPAY | PROVIDERS: PCP Family Medicine; Visit Provider Physician Assistant | DX: R39.9 Unspecified symptoms and signs involving the genitourinary system (principal) | CPT/HCPCS: 87077; 87086; 87186 ==

== ENCOUNTER 2024-12-07 08:06 | Day surgery (SDC) | payer OTHER, SELFPAY ==
[2024-12-07 08:31] VITALS: BP 153/84; PULSE 72; RESP 16; TEMP 36.1; O2SAT 98
[2024-12-07] MEDS: LACTATED RINGERS 1,000 ML 42 ML IV (08:37)
--- NOTE | 2024-12-07 09:20 | P.HP_ITS ---
History of Present Illness History of Present Illness Date Patient Seen: 12/07/24 Time Patient Seen: 09:20 Chief complaint: Colonoscopy Narrative: 64-year-old white female presents for colonoscopy for cancer screening. No changes in bowel habits. [facility] Medical History History of UTI Urinary incontinence Mumps Measles Chicken pox History of urinary incontinence (~1999) Hypothyroidism (~2008) Degenerative joint disease (DJD) of lumbar spine (~2014) Chronic back pain Surgical History Anesthesia Status post bilateral salpingo-oophorectomy (BSO) Status post hysterectomy (~1999) Family History Father Age: 89 Pacemaker Heart disease Grandfather Cancer Grandmother Stroke Grandfather Age: 83 Heart disease Grandmother Age: 90 Stroke Sister Age: 64 Hypertension Mother Cancer Social History marital status: household members: spouse education level: college occupational status: employed (teacher) Smoking Status: Never smoker alcohol intake: current substance use type: does not use Meds Home Medications and Allergies Home Medications Medication Instructions Recorded Confirmed Type levothyroxine 137 mcg tablet 137 mcg PO DAILY #90 tabs 06/21/24 12/07/24 Rx estradiol 1 mg tablet 1 mg PO DAILY 09/27/24 12/07/24 History Allergies Allergy/AdvReac Type Severity Reaction Status Date / Time codeine [CODEINE] Allergy Unknown projectile Verified 12/07/24 08:24 vomit Review of Systems Review of Systems ROS: Yes All systems reviewed with the patient and are negative except as otherwise documented Exam Vital Signs (past 8 hours): - 12/07/24 08:31 Temperature 96.9 F L Pulse Rate 72 Respiratory Rate 16 Blood Pressure 153/84 H Pulse Oximetry 98 Oxygen Delivery Method Room Air Oxygen Delivery Method Room Air Narrative Exam Narrative: Gen: NAD, sitting comfortably in bed, appears well HEENT: Sclera are anicteric, head is normocephalic and atraumatic, trachea is m idline. CV: RRR, no JVD Resp: clear to auscultation bilaterally, equal chest wall movement bilaterally Abd: soft, nontender, normoactive bowel sounds Ext: no edema, full range of motion Neuro: Cranial nerves II-XII grossly intact, no focal deficits Skin: No erythema or ecchymosis Assessment & Plan Assessment and plan (1) Colon cancer screening: Status: Acute Assessment & Plan narrative: Patient presents for colonoscopy Risks, benefits, alternatives to colonoscopy explained, including but not limited to bowel perforation or other serious complication requiring surgery at less than 1 in 5000 colonoscopies, abdominal pain, cramping or bleeding and less than 1% of colonoscopies, and the chances that we find a diagnosis that would require further intervention of about 2%. Patient agrees to proceed. Time-Based Coding :: [TOTAL MINUTES] spent with patient and on the chart (including review of chart, obtaining history, exam, reviewing outside data, placing orders, documenting exam and treatment plan, and counseling patient) on [DATE]. PROFEE Identity Management Consultant Document charge(s): No
--- NOTE | 2024-12-07 09:45 | P.OP.COLON_ITS ---
Operative Date/Time/Diagnoses Date of procedure: 12/07/24 Time of procedure: 09:45 Pre-op diagnosis: Colon screening Post-op diagnosis: same Procedure & Clinicians Study performed: Colonoscopy Same procedure as scheduled: Yes Indications: Colon screening Surgeon: Aaron Travis Procedure Notes SCOAP/Timeout: Performed Procedure in detail: Time-out was performed. Mac was induced. Patient was placed in left lateral d ecubitus position. The perineum was inspected without any gross abnormality. Lubricated pediatric colonoscope was inserted and advanced to the cecum. The terminal ileum was intubated. The colonoscope was withdrawn slowly inspecting the circumference of the colon. Very small polyps may have been missed, prep quality was adequate. Retroflexed view of the rectum showed small, non prolapsed nonbleeding internal hemorrhoids. The scope was withdrawn the patient was taken to PACU in good condition. Scope withdrawal time: 6 Specimen(s): none sent Complications: none Impression: normal colon Post-procedure Recommendations: Colonoscopy in 10 years Follow up: as needed Disposition: PACU
[2024-12-07 09:46] VITALS: BP 102/66; PULSE 63; RESP 9; TEMP 36.6; O2SAT 96
[2024-12-07 09:51] VITALS: BP 101/54; PULSE 60; RESP 16; O2SAT 95
[2024-12-07 09:56] VITALS: BP 112/57; PULSE 68; RESP 14; O2SAT 98
[2024-12-07 09:59] VITALS: BP 124/71; PULSE 61; RESP 14; O2SAT 98
== END 2024-12-07 10:10 | disposition home or self-care (01) ==
PROVIDERS: PCP Family Medicine; Referring Provider Surgery; Visit Provider Surgery
PROC: 0DJD8ZZ Inspection of Lower Intestinal Tract, Via Natural or Artificial Opening Endoscopic (ICD-10-PCS; CPT 45378; principal; 2024-12-07 09:15)
DX: Z12.11 Encounter for screening for malignant neoplasm of colon (principal); K64.8 Other hemorrhoids
CPT/HCPCS: 45378; J2704

== ENCOUNTER → 2025-03-05 16:33 | Outpatient (CLI) | payer OTHER, SELFPAY ==
--- NOTE | 2025-03-05 16:34 | DI.MG.S_ITS ---
MM screening mammo BI: 03/05/2025. BI-RADS: 1 CLINICAL: 64-year old female for bilateral screening mammogram. Tyrer-Cuzick lifetime risk of 7.2%. No personal or first-degree family history of breast cancer. PRIOR EXAMS 12/28/2023, 11/30/2023, 12/02/2021, MAMMOGRAPHY TECHNIQUE: 2D and 3D (tomosynthesis) digital mammographic views obtained, with additional images as needed for full coverage. Current study was also evaluated with a Computer Aided Detection (CAD) system. DENSITY C. The breasts are heterogeneously dense, which may obscure small masses. MAMMOGRAPHY FINDINGS Bilateral: No suspicious mass, asymmetry, microcalcification, or other abnormality seen. No significant change from comparison. IMPRESSION: * No evidence of malignancy. RECOMMENDATIONS Bilateral * Annual screening mammography. OVERALL ASSESSMENT CATEGORY BI-RADS-1: Negative. [employer] recommends annual screening mammography beginning at age 40 for women with average risk of breast cancer. ELECTRONICALLY SIGNED: Livia Luna M.D. on 03/07/2025 at 08:39:32 AM PT Interpreting Station ID: [id number]
== END ==
LOC: MAMMO 16:33
PROVIDERS: PCP Family Medicine; Referring Provider Family Medicine; Visit Provider Family Medicine
DX: Z12.31 Encounter for screening mammogram for malignant neoplasm of breast (principal); R92.333 Mammographic heterogeneous density, bilateral breasts
CPT/HCPCS: 77063; 77067

== ENCOUNTER → 2025-03-22 07:44 | Outpatient (CLI) | payer OTHER, SELFPAY | PROVIDERS: PCP Family Medicine; Visit Provider Registered Nurse | DX: R30.0 Dysuria (principal) | CPT/HCPCS: 87077; 87086; 87186 ==

== ENCOUNTER → 2025-04-02 15:26 | Outpatient (CLI) | payer OTHER, SELFPAY ==
[2025-04-02 15:54] LABS: Appearance Urine UA CLEAR; Bilirubin Urine UA NEGATIVE (NEGATIVE); Color Urine UA YELLOW; Glucose Urine UA NEGATIVE (Negative); Ketones Urine UA 1+ (NEGATIVE); Leukocyte Esterase Urine UA NEGATIVE (NEGATIVE); Nitrite Urine UA NEGATIVE (Negative); Occult Blood Urine UA NEGATIVE (Negative); Protein Urine UA NEGATIVE (Negative); Specific Gravity Urine UA 1.010 (1.000-1.035); Urobilinogen Urine UA 0.2 E.U./dL (0.2)
[2025-04-02 15:58] LABS: pH Urine UA 5.5 (4.5-8.0)
[2025-04-02 16:03] LABS: Culture Indicated Urine Cult Not Indicated
== END ==
PROVIDERS: PCP Family Medicine; Referring Provider Family Medicine; Visit Provider Family Medicine
DX: R35.0 Frequency of micturition (principal); R39.15 Urgency of urination
CPT/HCPCS: 81001

== ENCOUNTER → 2025-04-03 07:19 | Outpatient (CLI) | payer OTHER, SELFPAY ==
[2025-04-03 08:13] LABS: Cholesterol 255 mg/dL (140-199); HDL Cholesterol 53 mg/dL (40-60); Triglycerides 154 mg/dL (35-150)
== END ==
PROVIDERS: PCP Family Medicine; Referring Provider Family Medicine; Visit Provider Family Medicine
DX: Z01.818 Encounter for other preprocedural examination (principal); E03.9 Hypothyroidism, unspecified; E66.9 Obesity, unspecified; E78.00 Pure hypercholesterolemia, unspecified
CPT/HCPCS: 36415; 80061

== ENCOUNTER → 2025-05-09 19:10 | Outpatient (CLI) | payer OTHER, SELFPAY ==
--- NOTE | 2025-05-09 19:12 | DI.MRI.S_ITS ---
PROCEDURE: MR HIP RT WO CON INDICATIONS: right hip pain TECHNIQUE: Noncontrast coronal T1 spin echo and STIR through the bony pelvis. Coronal and axial T2 fast spin echo with fat saturation, sagittal T1 spin echo, and oblique axial T2 fast spin echo with fat saturation through the hip. COMPARISON: None. FINDINGS: Image quality: Excellent. Bones and joints: [id number] bilateral hip joint osteoarthritic changes are seen with joint space narrowing, subchondral sclerosis and small marginal osteophyte formation. There is no marrow edema. No fracture or dislocation. No avascular necrosis of the femoral heads. The visualized lower lumbar spine appears normally aligned. Tendons and ligaments: There is low-grade partial-thickness tear involving distal right gluteus medius tendon at its insertion on greater trochanter extending to musculotendinous junction. Distal right gluteus minimus tendinosis is seen. No fluid distension of the trochanteric bursa.The nearby proximal iliotibial band also appears intact. The iliopsoas tendon appears intact, without adjacent bursal fluid collections or evidence for impingement syndrome. Mild tendinosis involving origins of right hamstring tendons at ischial tuberosity is also seen. Labrum and cartilage: Linear T2 hyperintense signal involving superior anterior right acetabular labrum is seen consistent with superior anterior labral tear. Thinning of articulating cartilage over right femoral head is also noted. Soft tissues: Visualized muscles demonstrate normal bulk and internal signal. Quadratus femoris muscle demonstrates no internal edema to suggest ischiofemoral impingement. The proximal sciatic neurovascular bundle appears normal adjacent to the hamstring tendons. No free pelvic fluid. Bladder wall thickness is normal. Genitourinary structures and bowel loops appear normal where visualized. IMPRESSION: 1. [id number] bilateral hip joint osteoarthritis. No fracture or dislocation. No evidence of avascular necrosis. 2. Low-grade partial-thickness tear involving distal right gluteus medius tendon extending to musculotendinous junction. Distal right gluteus minimus tendinosis. Mild tendinosis also seen involving right hamstring tendon origins at ischial tuberosity. 3. Suggestion of superior anterior right acetabular labral tear. Dictated by: Iam Draper M.D. on 05/10/2025 at 9:22 Approved by: Iam Draper M.D. on 05/10/2025 at 9:31
== END ==
LOC: MRI 19:11
PROVIDERS: PCP Family Medicine; Referring Provider Family Medicine; Visit Provider Family Medicine
DX: M16.0 Bilateral primary osteoarthritis of hip (principal); S76.011A Strain of muscle, fascia and tendon of right hip, initial encounter; M25.551 Pain in right hip
CPT/HCPCS: 73721

== ENCOUNTER → 2025-08-03 10:41 | Outpatient (CLI) | payer OTHER, SELFPAY | PROVIDERS: PCP Family Medicine; Visit Provider Registered Nurse | DX: R30.0 Dysuria (principal) | CPT/HCPCS: 87086 ==